=== PATIENT | female | born 1975 | race Caucasian/White ===

== ENCOUNTER → 2016-07-29 | Outpatient (CLI) | payer BC ==
[2016-02-06 15:02] VITALS: BP 141/89
[~2016-07-29] MED LIST: NS 100 ML IV 100 ML IV ONE
--- NOTE | 2016-07-29 10:29 | CT ---
HISTORY: Pleurodynia, right-sided rib pain Study: CT chest with contrast Comparison: Radiograph 12/01/2015 Technique: Multiple axial images of the chest were obtained from the thoracic inlet to the upper abd omen after the administration of IV contrast. Dose reduction techniques including Automated Exposur e Control (AEC) and adjustment of mA and kV were utilized. Findings: No vascular abnormality is identified. Normal appearance of the heart and pericardium. The aorta ap pears normal in course and caliber. The lungs are clear without effusion, consolidation, or pneumoth orax. Airways are patent. There is a 6.5 mm noncalcified pulmonary nodule in the right upper lobe (a xial image 28). There is a noncalcified 4 mm subpleural nodule in the left lower lobe (axial image 3 2) there is an additional punctate subpleural nodule in the left lower lobe and tiny probable inters titial lymph node on the left side. The soft tissues and osseous structures appear intact. The visualized portions of the upper abdomen are grossly unremarkable. The gallbladder is removed. Probable left renal cyst. IMPRESSION: 1. No evidence of rib fracture or other acute abnormality. 2. There are 2 noncalcified pulmonary nodules as described above, the larger in the right upper lobe measuring 6.[address] in 6 months is recommended to evaluate for stability. Reported By:
== END ==
LOC: RAD 08:33
PROVIDERS: ATTEND Internal Medicine
DX: R07.81 Pleurodynia (principal); R06.02 Shortness of breath
CPT/HCPCS: 71260; A4222

== ENCOUNTER → 2016-08-30 | Outpatient (CLI) | payer BC ==
[2016-07-30 11:09] VITALS: BP 120/66
--- NOTE | 2016-08-30 11:50 | MRI ---
HISTORY: Thoracic back pain Study: MRI thoracic spine without contrast Comparison: None Technique: Multi planar multi sequence non contrast imaging Findings: The prevertebral soft tissues are normal. The alignment is normal. The vertebral bodies are of avera ge height. The disks are well hydrated. There is no evidence for compressive disc disease or carlyn sive spondylitic change at any level. No paraspinous soft tissue abnormality is identified. The thor acic spinal cord is normal in size and configuration and without areas of abnormal signal. IMPRESSION: No significant abnormality identified Reported By:
== END ==
LOC: RAD 08:37
PROVIDERS: ATTEND Internal Medicine
DX: M54.6 Pain in thoracic spine (principal); M25.511 Pain in right shoulder
CPT/HCPCS: 72146